=== PATIENT | female | born 1980 ===

== ENCOUNTER 2022-02-24 06:00 | Day surgery (SDC) | payer OTHER ==
[~2022-02-24 06:00] MED LIST: PANADOL MAXIMU500 MG PO
[2022-02-24] MEDS ORDERED: PEPCID AC20 MG PO (08:20)
== END 2022-02-24 09:40 | disposition home or self-care (01) ==
LOC: AMB-ENDOS 06:00
PROVIDERS: ATTEND Surgery
DX: K44.9 Diaphragmatic hernia without obstruction or gangrene (principal); E66.01 Morbid (severe) obesity due to excess calories; K30 Functional dyspepsia